=== PATIENT | male | born 1975 | race Two or more races ===

== ENCOUNTER 2018-01-04 05:30 | Emergency (ER) | payer OTHER ==
[~2018-01-04] VITALS: Ht 177.8 cm; Wt 90.5 kg
[2018-01-04 06:03] LABS: HEMATOCRIT 46.6 % (38.0-50.0); HEMOGLOBIN 15.5 G/DL (12.5-16.6); MCH 27.8 PG (29.0-34.0); MCHC 33.3 G/DL (30.0-36.0); MCV 83.7 FL (86-99); PLATELET COUNT 360 K/uL (156-360); RBC DIS.WIDTH-CV 13.1 % (11.8-14.6); RBC DIS.WIDTH-SD 39.8 % (39-53); RED BLOOD COUNT 5.57 M/uL (4.00-5.50); WHITE BLOOD COUNT 9.8 K/uL (4.1-10.2)
[2018-01-04 06:17] LABS: CHLORIDE 107 mEq/L (99-109); POTASSIUM 4.1 mEq/L (3.7-5.4); SODIUM 143 mEq/L (136-147)
[2018-01-04 06:18] LABS: GLUCOSE 85 mg/dL (70-99)
[2018-01-04 06:23] LABS: UREA NITROGEN (BUN) 15 mg/dL (9-23)
[2018-01-04 06:25] LABS: TROP-I INTERPRETATION NEGATIVE; TROPONIN-I < 0.01 ng/mL (0.0-0.30)
[2018-01-04 06:29] LABS: GFR ESTIMATE (CALCULATED) > 59 mL/min/ (58.99-99999)
[2018-01-04 06:59] LABS: APPEARANCE CLEAR ((CLEAR)); BILIRUBIN NEGATIVE; BLOOD SMALL; COLOR YELLOW ((YELLOW)); GLUCOSE (STRIP) NEGATIVE; KETONES NEGATIVE; LEUKOCYTES NEGATIVE; NITRITE NEGATIVE; PROTEIN (STRIP) NEGATIVE; SPECIFIC GRAVITY 1.019 (1.000-1.030); UROBILINOGEN 0.2 MG/DL (0.2-1.0)
[2018-01-04 07:06] LABS: BACTERIA NONE SEEN /HPF; EPITHELIAL CELLS NONE SEEN /HPF; MUCUS TRACE /LPF; UCUL ADDED? NO; WHITE BLOOD CELLS 0-5 /HPF (0-5)
[2018-01-04] MEDS ORDERED: CARDIZEM30 MG PO (07:23)
[2018-01-04] MEDS ORDERED: OMEPRAZOLE40 M1 PO (07:23)
[2018-01-04] MEDS ORDERED: PERCOCET 5/31 TABLET PO (07:23)
[2018-01-04] MEDS ORDERED: PROAIR HFA8.5 GM IH (08:19)
[2018-01-04 08:20] VITALS: BP 125/73
== END 2018-01-04 08:41 | disposition home or self-care (01) ==
LOC: EME 05:30
PROVIDERS: Physician Assistant
DX: J45.901 Unspecified asthma with (acute) exacerbation (principal); K22.4 Dyskinesia of esophagus; R10.9 Unspecified abdominal pain; R31.9 Hematuria, unspecified; R05 Cough; N20.0 Calculus of kidney; Z91.14 Patient's other noncompliance with medication regimen; Z72.0 Tobacco use
CPT/HCPCS: 71046; 80048; 81003; 84484; 85027; 93005; 94640; 99281; 99285; J1885

== ENCOUNTER 2018-01-08 20:58 | Emergency (ER) | payer OTHER ==
[~2018-01-08] VITALS: Ht 177.8 cm; Wt 90.8 kg
[~2018-01-08 20:58] MED LIST: CARDIZEM30 MG PO; OMEPRAZOLE40 M1 PO; PERCOCET 5/31 TABLET PO; PROAIR HFA8.5 GM IH
[2018-01-08 21:35] LABS: HEMATOCRIT 48.1 % (38.0-50.0); MCHC 33.3 G/DL (30.0-36.0); MCV 84.1 FL (86-99); PLATELET COUNT 362 K/uL (156-360); RBC DIS.WIDTH-SD 39.8 % (39-53); RED BLOOD COUNT 5.72 M/uL (4.00-5.50); WHITE BLOOD COUNT 10.3 K/uL (4.1-10.2)
[2018-01-08 21:42] LABS: CHLORIDE 104 mEq/L (99-109); POTASSIUM 4.5 mEq/L (3.7-5.4); SODIUM 142 mEq/L (136-147)
[2018-01-08 21:44] LABS: GLUCOSE 111 mg/dL (70-99)
[2018-01-08 21:48] LABS: CREATININE 0.9 mg/dL (0.6-1.3); GFR ESTIMATE (CALCULATED) > 59 mL/min/ (58.99-99999)
[2018-01-08 21:49] LABS: UREA NITROGEN (BUN) 11 mg/dL (9-23)
[2018-01-08 21:56] LABS: TROP-I INTERPRETATION NEGATIVE; TROPONIN-I < 0.01 ng/mL (0.0-0.30)
[2018-01-09] MEDS ORDERED: VALIUM5 MG PO (00:27)
[2018-01-09 00:34] LABS: TROP-I INTERPRETATION NEGATIVE; TROPONIN-I < 0.01 ng/mL (0.0-0.30)
[2018-01-09 01:17] VITALS: BP 133/85
== END 2018-01-09 01:17 | disposition home or self-care (01) ==
LOC: EME 20:58
PROVIDERS: Physician Assistant
DX: R07.89 Other chest pain (principal); N20.1 Calculus of ureter; K22.4 Dyskinesia of esophagus; Z87.442 Personal history of urinary calculi; J45.909 Unspecified asthma, uncomplicated; F17.200 Nicotine dependence, unspecified, uncomplicated; Z71.6 Tobacco abuse counseling
CPT/HCPCS: 71046; 80048; 84484; 85027; 93005; 99281; 99284; J1885

== ENCOUNTER 2018-03-16 11:43 | Emergency (ER) | payer SELFPAY ==
[~2018-03-16] VITALS: Ht 177.8 cm; Wt 82.0 kg
[~2018-03-16 11:43] MED LIST changes: +VALIUM5 MG PO
[2018-03-16] MEDS ORDERED: PROVENTIL HFA6.7 GM IH (14:11)
[2018-03-16] MEDS ORDERED: EPIPEN ADU0.3 MG/0.3 IM (14:11)
[2018-03-16 14:30] VITALS: BP 87/60
== END 2018-03-16 14:35 | disposition home or self-care (01) ==
LOC: EME 11:43
DX: T78.40XA Allergy, unspecified, initial encounter (principal); J45.909 Unspecified asthma, uncomplicated; F17.200 Nicotine dependence, unspecified, uncomplicated
CPT/HCPCS: 94640; 99281; 99285; J1200; J2930; S0028